=== PATIENT | male | born 1945 | race Caucasian/White ===

== ENCOUNTER 2019-11-08 19:47 | Emergency (ER) | payer MEDICARE, OTHER ==
[~2019-11-08] VITALS: Ht 172.7 cm; Wt 72.0 kg
[2019-11-08] MEDS ORDERED: SULF1TAB49 PO (21:25)
[2019-11-08] MEDS ORDERED: sulfamethoxazole/trimethoprim DS (800/160mg) tablet PO ONE (21:25)
[2019-11-08] MEDS ORDERED: ondansetron 4mg rapidly disintigrating tab PO ONE (21:25)
[2019-11-08 21:35] VITALS: BP 138/77
== END 2019-11-08 21:46 | disposition home or self-care (01) ==
LOC: ER 19:49
DX: L03.114 Cellulitis of left upper limb (principal); L02.512 Cutaneous abscess of left hand; Z79.899 Other long term (current) drug therapy
CPT/HCPCS: 10060; 73120; 99283

== ENCOUNTER 2024-09-06 19:21 | Emergency (ER) | payer MEDICARE, OTHER ==
[~2024-09-06] VITALS: Ht 172.7 cm; Wt 74.0 kg
[2024-09-06 19:32] VITALS: TEMP 97.9
[2024-09-06 20:25] VITALS: BP 146/72; PULSE 62; RESP 16; O2SAT 98
== END 2024-09-06 20:26 | disposition home or self-care (01) ==
LOC: ER 19:22
DX: I10 Essential (primary) hypertension (principal)
CPT/HCPCS: 99281

== ENCOUNTER 2025-03-20 12:54 | Emergency (ER) | payer MEDICARE, OTHER ==
[~2025-03-20] VITALS: Ht 172.7 cm; Wt 70.5 kg
[~2025-03-20 12:54] MED LIST: ASPI81TA53 PO; ATOR20TA66 PO; CLOP75TA34 PO; LISI10TA27 PO
[2025-03-20 13:07] VITALS: BP 142/74; PULSE 63; RESP 15; TEMP 98.5; O2SAT 98
[2025-03-20] MEDS: TETRACAINE 0.5% 4 ML OPHTHALMIC DROPS LEFTEYE ONE (15:48)
--- NOTE | 2025-03-20 16:26 | Physician Documentation ---
History of Present Illness ~ Chief Complaint: Eye Pain Stated Complaint: "I HAVE PINK EYE" Time Seen by MD: 14:47 Primary Medical Doctor: DR. RICHARD HPI Patient reports for several days of eye discharge and irritation. Itching. Also with discharge from his left eye. Otherwise well no visual complaints. No fevers. He also denies any foreign bodies. Medication Reconciliation Allergies: Coded Allergies: No Known Allergies (Unverified , 10/19/24) Scheduled Aspirin (Children's Aspirin), 81 MG PO DAILY@0830 Atorvastatin Calcium (Atorvastatin Calcium), 40 MG PO DAILY Clopidogrel Bisulfate (Clopidogrel), 75 MG PO DAILY Lisinopril (Lisinopril), 10 MG PO DAILY Past Medical History Past Medical History: Thyroid (unspecified) Past Surgical History: noncontributory Alcohol Use: None Drug Use: none Lives with: Spouse Lives In: Home Review of Systems All Other Systems at this time: Reviewed and Negative Physical Exam Vital Signs: Temperature: 98.5, Source: Temporal, Heart Rate: 63, Respiratory Rate: 15, BP: 142/74, Pulse Oximetry: 98, Weight: 70.450 Physical Exam Well-appearing no distress resting comfortably in bed HEENT left eye conjunctivitis, extraocular motions intact, periorbital tissues intact no erythema. Progress Results/Orders Results/Orders Completed Orders - ROBBY MEJIA MD Tetracaine 0.5% Ophth Drops (Tetravisc 0 (03/20/25 14:50) Vital Signs 03/20/25 13:07 Temp 98.5 Pulse 63 Resp 15 B/P (MAP) 142/74 Pulse Ox 98 Medical Decision Making Additional Comment Preseptal cellulitis, post septal cellulitis, conjunctivitis Departure Disposition: HOME / SELF CARE / HOMELESS Impression: Primary Impression: Conjunctivitis Qualified Codes: H10.32 - Unspecified acute conjunctivitis, left eye Referrals: NO PRIMARY CARE PROVIDER (PCP) Signature Scribe Signature: na Attestation: ROBBY Jacob MD March 20, 2025 16:26
[2025-03-20] MEDS: BACITRACIN EACHEYE ONE (16:32)
[2025-03-20] MEDS ORDERED: CIPR2.5D21 LEFTEYE (16:33)
== END 2025-03-20 16:36 | disposition home or self-care (01) ==
LOC: ER 12:55
DX: H10.32 Unspecified acute conjunctivitis, left eye (principal); Z79.82 Long term (current) use of aspirin
CPT/HCPCS: 99283